=== PATIENT | male | born 1995 | race Caucasian/White ===

== ENCOUNTER 2017-04-16 17:40 | Emergency (ER) | payer OTHER ==
[2017-04-16] MEDS ORDERED: FAMOTIDINE 20 MG/2 ML VIAL IV STA (19:36)
[2017-04-16] MEDS ORDERED: MAG HYDROX/AL HYDROX/SIMETH 30 ML, HYOSCYAMINE ELIXIR 10 ML, CIMETIDINE HCL 300 MG PO STA ×3 (19:36)
[2017-04-16] MEDS ORDERED: ONDANSETRON 4 MG/2 ML VIAL IVP STA (19:36)
--- NOTE | 2017-04-16 19:44 | ED ---
Abdominal Pain HPI - General Chief Complaint: Abdominal Pain Stated Complaint: abdominal pain Time Seen by Provider: 04/16/17 19:19 Source: patient Mode of arrival: ambulatory Limitations: no limitations - History of Present Illness Initial Comments: Pt presents with "tightness" pain across upper abdomen that occurs intermittently for 3 weeks. Pain varies from mild to severe. States he feels it worse on L side, "just under the ribs". Patient has never had the pain before 3 weeks ago. Patient states pain is associated with belching usually. States pain is usually relieved by eating and then vomiting. Patient states he takes Tylenol daily for the pain, denies any NSAID use. Patient admits to daily smoking. Patient denies history of heart disease. Mother bedside denies any early family history of heart disease. Patient denies any history of lung disease. Patient denies shortness of breath, cough, fevers, chills, URI symptoms, changes in bowel movements, changes in urination. MD Complaint: abdominal pain - Related Data Home Medications Medication Instructions Recorded Confirmed Acetaminophen [Tylenol Extra 2,000 mg PO DAILY PRN 04/16/17 04/16/17 Strength] Previous Rx's Medication Instructions Recorded Ranitidine HCl [Zantac] 150 mg PO HS #20 tab 04/16/17 Allergies Allergy/AdvReac Type Severity Reaction Status Date / Time No Known Allergies Allergy Verified 04/16/17 19:26 Review of Systems ROS Statement: Those systems with pertinent positive or pertinent negative responses have been documented in the HPI. ROS Other: All systems not noted in ROS Statement are negative. Constitutional: Denies: fever, chills, weakness, weight change ENT: Denies: throat pain, congestion Respiratory: Denies: cough, dyspnea Cardiovascular: Reports: other (States pain below ribs, not in chest). Denies: chest pain, palpitations, syncope Endocrine: Denies: fatigue Gastrointestinal: Reports: abdominal pain, nausea. Denies: vomiting, diarrhea, constipation, hematemesis, melena, hematochezia Genitourinary: Denies: urgency, frequency Musculoskeletal: Denies: back pain Skin: Denies: rash Neurological: Denies: headache Past Medical History Past Medical History: No Reported History History of Any Multi-Drug Resistant Organisms: None Reported Past Surgical History: No Surgical Hx Reported Past Psychological History: No Psychological Hx Reported Smoking Status: Current every day smoker Past Alcohol Use History: None Reported Past Drug Use History: Marijuana General Exam - General Exam Comments Initial Comments: Sitting up in bed smiling. No acute distress. Well-appearing. Calm, pleasant. Limitations: no limitations General appearance: alert, in no apparent distress Head exam: Present: atraumatic, normocephalic Eye exam: Present: normal appearance, PERRL, EOMI ENT exam: Present: normal exam, mucous membranes moist Neck exam: Present: normal inspection Respiratory exam: Present: normal lung sounds bilaterally. Absent: respiratory distress, wheezes, rales, rhonchi, stridor, chest wall tenderness, accessory muscle use, decreased breath sounds, prolonged expiratory Cardiovascular Exam: Present: regular rate, normal rhythm GI/Abdominal exam: Present: soft, normal bowel sounds, other (Nontender, nondistended ). Absent: distended, tenderness, guarding, rebound, rigid, hernia Neurological exam: Present: alert, oriented X3 Psychiatric exam: Present: normal affect, normal mood Skin exam: Present: warm, dry, intact, normal color. Absent: rash, cyanosis Course Vital Signs 04/16/17 04/16/17 04/16/17 18:10 19:35 20:01 Temperature 100.4 F H 99.4 F Pulse Rate 71 61 Respiratory 18 18 Rate Blood Pressure 133/74 100/62 O2 Sat by Pulse 100 98 Oximetry Medical Decision Making - Medical Decision Making EKG done in triage, normal sinus rhythm, no ST or T-wave changes appreciated. Patient denies fevers at home, denies any infectious symptoms. Repeat temperature 99.4 Fahrenheit at time of physician evaluation, no antipyretics given. Chest x-ray no acute process. No significant lab abnormalities. Patient mother updated without results. Patient states symptoms currently resolved. Feels comfortable going home. Discussed follow primary care physician, possible referral to GI doctor. Prescription Zantac given. Patient started to avoid NSAIDs. Return to ER for new or worsening symptoms. Patient & mother understand and agree. - Lab Data Result diagrams: 04/16/17 19:51 04/16/17 19:51 Lab Results 04/16/17 04/16/17 Range/Units 19:51 19:51 WBC 10.0 (4.0-11.0) k/uL RBC 4.67 (4.30-5.90) m/uL Hgb 14.2 (13.0-17.5) gm/dL Hct 43.4 (39.0-53.0) % MCV 92.8 (80.0-100.0) fL MCH 30.3 (25.0-35.0) pg MCHC 32.7 (31.0-37.0) g/dL RDW 12.7 (11.5-15.5) % Plt Count 195 (150-450) k/uL Neutrophils % 61 % Lymphocytes % 34 % Monocytes % 3 % Eosinophils % 1 % Basophils % 0 % Neutrophils # 6.1 (1.3-7.7) k/uL Lymphocytes # 3.4 (1.0-4.8) k/uL Monocytes # 0.3 (0-1.0) k/uL Eosinophils # 0.1 (0-0.7) k/uL Basophils # 0.0 (0-0.2) k/uL Sodium 142 (137-145) mmol/L Potassium 3.8 (3.5-5.1) mmol/L Chloride 104 (98-107) mmol/L Carbon Dioxide 26 (22-30) mmol/L Anion Gap 12 mmol/L BUN 12 (9-20) mg/dL Creatinine 0.70 (0.66-1.25) mg/dL Est GFR (MDRD) Af Amer >60 (>60 ml/min/1.73 sqM) Est GFR (MDRD) Non-Af >60 (>60 ml/min/1.73 sqM) Glucose 78 (74-99) mg/dL Calcium 9.6 (8.4-10.2) mg/dL Total Bilirubin 0.1 L (0.2-1.3) mg/dL Conjugated Bilirubin 0.0 (0.0-0.3) mg/dL Unconjugated Bilirubin 0.0 (0.0-1.1) mg/dL Delta Bilirubin 0.1 (0.0-0.2) mg/dL AST 44 (17-59) U/L ALT 90 H (21-72) U/L Alkaline Phosphatase 65 (38-126) U/L Total Protein 7.1 (6.3-8.2) g/dL Albumin 4.6 (3.5-5.0) g/dL Lipase 57 (23-300) U/L Disposition Clinical Impression: Abdominal pain Disposition: HOME SELF-CARE Condition: Good Instructions: Abdominal Pain (ED) Additional Instructions: Follow-up with primary care physician. Return to ER if new or worsening symptoms. Prescriptions: Ranitidine HCl [Zantac] 150 mg PO HS #20 tab Referrals: King Garcia MD [Primary Care Provider] - 1-2 days
--- NOTE | 2017-04-16 20:14 | XR ---
EXAMINATION TYPE: XR chest 2V DATE OF EXAM: 04/16/2017 COMPARISON: NONE HISTORY: Chest pain TECHNIQUE: Frontal and lateral views of the chest are obtained. FINDINGS: Heart and mediastinum are normal. Lungs are clear. Diaphragm is normal. Bony thorax is int act. IMPRESSION: Normal chest
[2017-04-16 20:16] LABS: Basophils % (A) 0 %; Eosinophils # (A) 0.1 k/uL (0-0.7); Eosinophils % (A) 1 %; HCT 43.4 % (39.0-53.0); HGB 14.2 gm/dL (13.0-17.5); Lymphocytes # (A) 3.4 k/uL (1.0-4.8); Lymphocytes % (A) 34 %; MCH 30.3 pg (25.0-35.0); MCHC 32.7 g/dL (31.0-37.0); MCV 92.8 fL (80.0-100.0); Mean Platelet Volume 7.5; Monocytes # (A) 0.3 k/uL (0-1.0); Monocytes % (A) 3 %; Neutrophils # (A) 6.1 k/uL (1.3-7.7); Neutrophils % (A) 61 %; Platelet Count 195 k/uL (150-450); RBC 4.67 m/uL (4.30-5.90); RDW 12.7 % (11.5-15.5)
[2017-04-16 20:31] LABS: ALT 90 U/L (21-72); AST 44 U/L (17-59); Albumin 4.6 g/dL (3.5-5.0); Alkaline Phosphatase 65 U/L (38-126); Anion Gap 12 mmol/L; Bilirubin, Delta 0.1 mg/dL (0.0-0.2); Blood Urea Nitrogen 12 mg/dL (9-20); Calcium 9.6 mg/dL (8.4-10.2); Carbon Dioxide 26 mmol/L (22-30); Chloride 104 mmol/L (98-107); Glucose 78 mg/dL (74-99); Lipase 57 U/L (23-300); Potassium 3.8 mmol/L (3.5-5.1); Sodium 142 mmol/L (137-145); Total Bilirubin 0.1 mg/dL (0.2-1.3); Total Protein 7.1 g/dL (6.3-8.2)
[2017-04-16 21:01] VITALS: BP 100/64; RESP 16; TEMP 97.7
[2017-04-16 21:08] VITALS: PULSE 53
== END 2017-04-16 21:08 | disposition home or self-care (01) ==
LOC: EC 17:40
DX: R10.9 Unspecified abdominal pain (principal); R11.10 Vomiting, unspecified; F17.200 Nicotine dependence, unspecified, uncomplicated
CPT/HCPCS: 36415; 93005; 80048; 80076; 83690; 85025; 71046; 99284; 96374; 96375; J2405

== ENCOUNTER 2019-04-03 05:06 | Emergency (ER) | payer OTHER ==
[2019-04-03 05:21] VITALS: BP 102/59; PULSE 87; RESP 18; TEMP 97.6
[2019-04-03] MEDS ORDERED: LIDOCAINE 1% INJ 10MG/ML (20 ML MDV) SQ ONE (06:04)
--- NOTE | 2019-04-03 06:07 | XR ---
EXAM: XR Left Ankle Complete, 3 Views CLINICAL HISTORY: ITS.REASON XR injury/pain TECHNIQUE: Frontal, lateral and oblique views of the left ankle. COMPARISON: No relevant prior studies available. FINDINGS: Bones/joints: 4 x 6 mm radiopaque foreign object in the anterior aspect of distal third of fibula. No fracture. No dislocation. Soft tissues: Mild soft tissue swelling in anterior aspect of distal lower leg. IMPRESSION: 4 x 6 mm radiopaque foreign object in the anterior aspect of distal third of fibula.
--- NOTE | 2019-04-03 06:08 | XR ---
EXAM: XR Left Tibia and Fibula, 2 Views CLINICAL HISTORY: injury/pain TECHNIQUE: Frontal and lateral views of the left tibia and fibula. COMPARISON: No relevant prior studies available. FINDINGS: Bones/joints: No fracture. No dislocation. Soft tissues: 4 x 6 mm radiopaque foreign object in the anterior aspect of distal third of fibula. Mild soft tissue swelling in the anterolateral aspect of distal lower leg IMPRESSION: 4 x 6 mm radiopaque foreign object in the anterior aspect of distal third of fibula
--- NOTE | 2019-04-03 06:09 | XR ---
EXAM: XR Left Foot Complete, 3 or More Views CLINICAL HISTORY: left leg pain after hitting it with a sledge hammer TECHNIQUE: Frontal, lateral and oblique views of the left foot. COMPARISON: No relevant prior studies available. FINDINGS: Bones/joints: 3 mm loose body in the lateral aspect of interphalangeal joint of great toe. No acute fracture. No dislocation. Soft tissues: Unremarkable. No radiopaque foreign body. IMPRESSION: No acute fracture
--- NOTE | 2019-04-03 06:15 | ED ---
Lower Extremity Injury HPI <Juan Garza - Last Filed: 04/03/19 06:34> - General Source: patient Mode of arrival: ambulatory Limitations: physical limitation <Eryn Ramirez - Last Filed: 04/03/19 07:44> - General Chief Complaint: Extremity Injury, Lower Stated Complaint: leg pain Time Seen by Provider: 04/03/19 05:25 - History of Present Illness Initial Comments: Poli is a previously healthy 23-year-old male presents the ER today for evaluation of left prakash pain. Patient reports that yesterday he was working in his garage she has something with a sledgehammer and then felt a sharp pain in his leg and then dropped a sledgehammer onto his foot. Patient reports pain in his anterior prakash and foot though he has been ambulatory. He did note a cut on his leg. Last tetanus update was within the past 2-3 years, this is confirmed by his mother at bedside. (Eryn Ramirez) - Related Data Home Medications Medication Instructions Recorded Confirmed Acetaminophen [Tylenol Extra 2,000 mg PO DAILY PRN 04/16/17 04/16/17 Strength] Previous Rx's Medication Instructions Recorded Ranitidine HCl [Zantac] 150 mg PO HS #20 tab 04/16/17 Ibuprofen [Motrin] 600 mg PO Q8HR PRN #30 tab 04/03/19 Sulfamethox-Tmp 800-160Mg [Bactrim 1 tab PO Q12HR #14 tab 04/03/19 DS 800-160 mg] Allergies Allergy/AdvReac Type Severity Reaction Status Date / Time No Known Allergies Allergy Verified 04/03/19 05:21 Review of Systems ROS Other: All systems not noted in ROS Statement are negative. <Juan Garza - Last Filed: 04/03/19 06:34> ROS Other: All systems not noted in ROS Statement are negative. <Eryn Ramirez - Last Filed: 04/03/19 07:44> ROS Statement: Those systems with pertinent positive or pertinent negative responses have been documented in the HPI. Past Medical History Past Medical History: No Reported History History of Any Multi-Drug Resistant Organisms: None Reported Past Surgical History: No Surgical Hx Reported Past Psychological History: No Psychological Hx Reported Smoking Status: Current every day smoker Past Alcohol Use History: None Reported, Occasional Past Drug Use History: None Reported, Marijuana <Eryn Ramirez - Last Filed: 04/03/19 07:44> General Exam Limitations: physical limitation <Eryn Ramirez - Last Filed: 04/03/19 07:44> - General Exam Comments Initial Comments: Physical Exam GENERAL: Patient is well-developed and well-nourished. Patient is nontoxic and well-hydrated and is in no distress. HENT: Normocephalic, Atraumatic. EYES: PERRL, EOMI PULMONARY: Unlabored respirations. CARDIOVASCULAR: RRR Warm and well perfused extremities ABDOMEN: Non-distended SKIN: Actually 1 cm laceration to the anterior surface of the distal third of the left prakash with some minimal surrounding swelling significant tenderness : Deferred NEUROLOGIC: Alert and oriented Normal speech Normal gait MUSCULOSKELETAL: Moving all extremities with no apparent injury PSYCHIATRIC: No SI/HI (Eryn Ramirez) Course Vital Signs 04/03/19 05:18 Temperature 97.6 F Pulse Rate 87 Respiratory 18 Rate Blood Pressure 102/59 O2 Sat by Pulse 99 Oximetry Procedures - Forgein Body Removal Soft Tissue Consent Obtained: verbal consent Site: lower extremity (Left lower leg) Anesthetic Used: lidocaine 1% Amount (mLs): 8 Foreign Body Suspected: Metal Foreign Body Removed: no Foreign Body Removal Technique: Other (Blunt needle) Patient Tolerated Procedure: well, no complications <Juan Garza - Last Filed: 04/03/19 06:34> - Forgein Body Removal Soft Tissue Additional Comments: Wound was thoroughly irrigated, cleaned (Juan Garza) Medical Decision Making <Eryn Ramirez - Last Filed: 04/03/19 07:44> - Medical Decision Making The patient was seen and evaluated history obtained from patient and sent x-rays were ordered and confirmed a soft tissue foreign body. Juan AYALA attempted to extract the foreign body, however it was noted to be deep and not palpable therefore further attempts were not continued Orthopedic was consulted, images were transmitted, Dr Escobar recommends oral antibiotics, pain management, follow up in office later today or tomorrow This plan was discussed with patient and mother who agrees, patient discharged in stable condition (Eryn Ramirez) Disposition <Juan Garza - Last Filed: 04/03/19 06:34> Is patient prescribed a controlled substance at d/c from ED?: No <Eryn Ramirez Sandy - Last Filed: 04/03/19 07:44> Clinical Impression: Foreign body (FB) in soft tissue Disposition: HOME SELF-CARE Condition: Stable Instructions (If sedation given, give patient instructions): Soft Tissue Foreign Body (ED) Additional Instructions: The wound clean and dry, apply ice and keep it elevated to decrease pain and [facility] for evaluation Her to the ER for any worsening or development of any redness or purulent discharge signs of infection or any new or concerning symptoms Prescriptions: Sulfamethox-Tmp 800-160Mg [Bactrim DS 800-160 mg] 1 tab PO Q12HR #14 tab Ibuprofen [Motrin] 600 mg PO Q8HR PRN #30 tab PRN Reason: Pain Referrals: King Garcia MD [Primary Care Provider] - 1-2 days
[2019-04-03] MEDS ORDERED: KETOROLAC 30 MG/ML 1 ML VIAL IM STA (06:36)
== END 2019-04-03 07:10 | disposition home or self-care (01) ==
LOC: EC 05:06
DX: S81.822A Laceration with foreign body, left lower leg, initial encounter (principal); F17.200 Nicotine dependence, unspecified, uncomplicated; W20.8XXA Other cause of strike by thrown, projected or falling object, initial encounter; W45.8XXA Other foreign body or object entering through skin, initial encounter; Y93.89 Activity, other specified; Y92.59 Other trade areas as the place of occurrence of the external cause
CPT/HCPCS: 10120; 96372; 99283

== ENCOUNTER 2020-03-03 20:23 | Emergency (ER) | payer OTHER ==
[2020-03-03 20:43] VITALS: BP 142/103; PULSE 95; RESP 16; TEMP 98.3
--- NOTE | 2020-03-03 20:56 | ED ---
Wound/Laceration HPI - General Source: EMS Mode of arrival: EMS Limitations: physical limitation <Maye Ag - Last Filed: 03/03/20 22:18> <Fiorella Nunes - Last Filed: 03/05/20 11:59> - General Chief Complaint: Wound/Laceration Stated Complaint: Face Laceration Time Seen by Provider: 03/03/20 20:40 - History of Present Illness Initial Comments: 24-year-old male patient presents to the emergency department today for evaluation of facial injury. Patient does admit to drinking alcohol this evening and experiencing a fall hitting his face on a brick fireplace. Reports drinking 15-18 beers today. Patient is unsure if he passed out. Friends immediately called ambulance and sent him here. Mother is present and believes last tetanus vaccine was given within the last 2-3 years. He denies any other injuries. Patient denies any headache, neck pain, back pain, chest pain, shortness of breath, dizziness, weakness, abdominal pain, nausea, vomiting, or difficulties with bowel movements or urination. (Maye Ag) - Related Data Home Medications Medication Instructions Recorded Confirmed Acetaminophen [Tylenol Extra 2,000 mg PO DAILY PRN 04/16/17 04/16/17 Strength] Previous Rx's Medication Instructions Recorded Ranitidine HCl [Zantac] 150 mg PO HS #20 tab 04/16/17 Ibuprofen [Motrin] 600 mg PO Q8HR PRN #30 tab 04/03/19 Sulfamethox-Tmp 800-160Mg [Bactrim 1 tab PO Q12HR #14 tab 04/03/19 DS 800-160 mg] Allergies Allergy/AdvReac Type Severity Reaction Status Date / Time No Known Allergies Allergy Verified 04/03/19 05:21 Review of Systems ROS Other: All systems not noted in ROS Statement are negative. <Maye Ag - Last Filed: 03/03/20 22:18> ROS Other: All systems not noted in ROS Statement are negative. <Fiorella Nunes - Last Filed: 03/05/20 11:59> ROS Statement: Those systems with pertinent positive or pertinent negative responses have been documented in the HPI. Past Medical History Past Medical History: No Reported History History of Any Multi-Drug Resistant Organisms: None Reported Past Surgical History: No Surgical Hx Reported Past Psychological History: No Psychological Hx Reported Past Alcohol Use History: None Reported, Occasional Past Drug Use History: None Reported, Marijuana <Maye Ag M - Last Filed: 03/03/20 22:18> General Exam Limitations: physical limitation General appearance: alert, in no apparent distress, other (Well-developed, well- nourished adult male patient in no acute distress. Vital signs upon presentation are temperature 98.3F, pulse 95, respirations 16, blood pressure 142/103, pulse ox 98% on room air.) Head exam: Present: atraumatic, normocephalic Eye exam: Present: normal appearance, PERRL, EOMI. Absent: scleral icterus, conjunctival injection, periorbital swelling, periorbital tenderness ENT exam: Present: mucous membranes moist, other (There is large gaping laceration involving the left upper lip and cheek. Patient does have broken teeth numbers 10 and 11. No tongue injury. Mild left maxillary tenderness.). Absent: normal exam Neck exam: Present: normal inspection, full ROM, other (Nontender, no step-off, no deformity to firm midline palpation of the posterior cervical spine. Full range of motion without pain or limitation.). Absent: tenderness, meningismus, lymphadenopathy Respiratory exam: Present: normal lung sounds bilaterally. Absent: respiratory distress, wheezes, rales, rhonchi, stridor Cardiovascular Exam: Present: regular rate, normal rhythm, normal heart sounds. Absent: systolic murmur, diastolic murmur, rubs, gallop, clicks GI/Abdominal exam: Present: soft, normal bowel sounds. Absent: distended, tenderness, guarding, rebound, rigid Extremities exam: Present: normal inspection, full ROM, normal capillary refill. Absent: tenderness, pedal edema, joint swelling, calf tenderness Back exam: Present: normal inspection, other (Nontender, no step-off, no deformity to firm midline palpation of the thoracic and lumbar vertebrae. Full range of motion without pain or limitation.). Absent: vertebral tenderness Neurological exam: Present: alert, oriented X3, CN II-XII intact Psychiatric exam: Present: normal affect, normal mood Skin exam: Present: warm, dry, intact, normal color. Absent: rash <Maye Ag M - Last Filed: 03/03/20 22:18> Course Vital Signs 03/03/20 20:29 Temperature 98.3 F Pulse Rate 95 Respiratory 16 Rate Blood Pressure 142/103 O2 Sat by Pulse 98 Oximetry Medical Decision Making - Lab Data Result diagrams: 03/03/20 21:21 03/03/20 21:21 - Radiology Data Radiology results: report reviewed, image reviewed <Maye Ag - Last Filed: 03/03/20 22:18> - Lab Data Result diagrams: 03/03/20 21:21 03/03/20 21:21 <Fiorella Nunes - Last Filed: 03/05/20 11:59> - Medical Decision Making 25-year-old male patient presents to the emergency department today for evaluation after sustaining facial injury. Patient does admit to drinking alcohol, fell on his face on a brick fireplace. Physical examination did reveal large gaping laceration measuring approximately 12 cm to the left face and cheek. He did have broken teeth #[address] brain, C-spine, facial bones was obtained, results are pending. Labs pending. Patient will be transferred to [facility] for repair of this extensive laceration. Patient was given IV kefzol. His tetanus is up to date per mother. He denies having any current pain. (Maye Ag) - Lab Data Lab Results 03/03/20 03/03/20 03/03/20 Range/Units 21:13 21:21 21:21 WBC 9.0 (3.8-10.6) k/uL RBC 4.81 (4.30-5.90) m/uL Hgb 16.2 (13.0-17.5) gm/dL Hct 45.9 (39.0-53.0) % MCV 95.4 (80.0-100.0) fL MCH 33.7 (25.0-35.0) pg MCHC 35.3 (31.0-37.0) g/dL RDW 12.8 (11.5-15.5) % Plt Count 216 (150-450) k/uL MPV 7.2 Neutrophils % 62 % Lymphocytes % 26 % Monocytes % 5 % Eosinophils % 1 % Basophils % 2 % Neutrophils # 5.6 (1.3-7.7) k/uL Lymphocytes # 2.4 (1.0-4.8) k/uL Monocytes # 0.5 (0-1.0) k/uL Eosinophils # 0.1 (0-0.7) k/uL Basophils # 0.2 (0-0.2) k/uL PT 9.4 (9.0-12.0) sec INR 0.9 (<1.2) APTT 26.2 (22.0-30.0) sec Sodium (137-145) mmol/L Potassium (3.5-5.1) mmol/L Chloride (98-107) mmol/L Carbon Dioxide (22-30) mmol/L Anion Gap mmol/L BUN (9-20) mg/dL Creatinine (0.66-1.25) mg/dL Est GFR (CKD-EPI)AfAm (>60 ml/min/1.73 sqM) Est GFR (CKD-EPI)NonAf (>60 ml/min/1.73 sqM) Glucose (74-99) mg/dL Calcium (8.4-10.2) mg/dL Total Bilirubin (0.2-1.3) mg/dL AST (17-59) U/L ALT (4-49) U/L Alkaline Phosphatase (38-126) U/L Total Protein (6.3-8.2) g/dL Albumin (3.5-5.0) g/dL Urine Color Colorless Urine Appearance Clear (Clear) Urine pH 6.5 (5.0-8.0) Ur Specific Willard 1.002 (1.001-1.035) Urine Protein Negative (Negative) Urine Glucose (UA) Negative (Negative) Urine Ketones Negative (Negative) Urine Blood Negative (Negative) Urine Nitrite Negative (Negative) Urine Bilirubin Negative (Negative) Urine Urobilinogen <2.0 (<2.0) mg/dL Ur Leukocyte Esterase Negative (Negative) Serum Alcohol mg/dL 03/03/20 Range/Units 21:21 WBC (3.8-10.6) k/uL RBC (4.30-5.90) m/uL Hgb (13.0-17.5) gm/dL Hct (39.0-53.0) % MCV (80.0-100.0) fL MCH (25.0-35.0) pg MCHC (31.0-37.0) g/dL RDW (11.5-15.5) % Plt Count (150-450) k/uL MPV Neutrophils % % Lymphocytes % % Monocytes % % Eosinophils % % Basophils % % Neutrophils # (1.3-7.7) k/uL Lymphocytes # (1.0-4.8) k/uL Monocytes # (0-1.0) k/uL Eosinophils # (0-0.7) k/uL Basophils # (0-0.2) k/uL PT (9.0-12.0) sec INR (<1.2) APTT (22.0-30.0) sec Sodium 142 (137-145) mmol/L Potassium 4.2 (3.5-5.1) mmol/L Chloride 108 H (98-107) mmol/L Carbon Dioxide 21 L (22-30) mmol/L Anion Gap 13 mmol/L BUN 8 L (9-20) mg/dL Creatinine 0.63 L (0.66-1.25) mg/dL Est GFR (CKD-EPI)AfAm >90 (>60 ml/min/1.73 sqM) Est GFR (CKD-EPI)NonAf >90 (>60 ml/min/1.73 sqM) Glucose 105 H (74-99) mg/dL Calcium 10.0 (8.4-10.2) mg/dL Total Bilirubin 0.4 (0.2-1.3) mg/dL AST 69 H (17-59) U/L ALT 68 H (4-49) U/L Alkaline Phosphatase 78 (38-126) U/L Total Protein 8.3 H (6.3-8.2) g/dL Albumin 5.0 (3.5-5.0) g/dL Urine Color Urine Appearance (Clear) Urine pH (5.0-8.0) Ur Specific Willard (1.001-1.035) Urine Protein (Negative) Urine Glucose (UA) (Negative) Urine Ketones (Negative) Urine Blood (Negative) Urine Nitrite (Negative) Urine Bilirubin (Negative) Urine Urobilinogen (<2.0) mg/dL Ur Leukocyte Esterase (Negative) Serum Alcohol 325 H* mg/dL - Radiology Data CT brain and C-spine without contrast was obtained. Report was reviewed in its entirety. Impression by Dr. Correa shows negative computed tomography scan of the brain, negative computed tomography scan of the cervical spine. CT facial bones without contrast was obtained. Report reviewed in its entirety. Impression by Dr. Correa shows laceration defect anterior to the left hemimandible. Sinusitis. No fracture seen. (Maye Ag) Disposition Decision to Admit Reason: Admit from EC Decision Date: 03/03/20 Decision Time: 21:14 <Maye Ag - Last Filed: 03/03/20 22:18> <Fiorella Nunes - Last Filed: 03/05/20 11:59> Clinical Impression: Facial laceration, Head injury, Alcohol intoxication Disposition: ADMITTED IP TO THIS [facility] Condition: Serious Referrals: Mainor Garcia MD [Primary Care Provider] - 1-2 days
[2020-03-03 21:24] LABS: Basophils # (A) 0.2 k/uL (0-0.2); Basophils % (A) 2 %; Eosinophils # (A) 0.1 k/uL (0-0.7); Eosinophils % (A) 1 %; HCT 45.9 % (39.0-53.0); HGB 16.2 gm/dL (13.0-17.5); Lymphocytes # (A) 2.4 k/uL (1.0-4.8); Lymphocytes % (A) 26 %; MCH 33.7 pg (25.0-35.0); MCHC 35.3 g/dL (31.0-37.0); MCV 95.4 fL (80.0-100.0); Mean Platelet Volume 7.2; Monocytes # (A) 0.5 k/uL (0-1.0); Monocytes % (A) 5 %; Neutrophils # (A) 5.6 k/uL (1.3-7.7); Neutrophils % (A) 62 %; Platelet Count 216 k/uL (150-450); RBC 4.81 m/uL (4.30-5.90); RDW 12.8 % (11.5-15.5)
[2020-03-03 21:33] LABS: ALT 68 U/L (4-49); AST 69 U/L (17-59); African American GFR (CKD) >90 (>60 ml/min/1.73 sqM); Alkaline Phosphatase 78 U/L (38-126); Anion Gap 13 mmol/L; Blood Urea Nitrogen 8 mg/dL (9-20); Carbon Dioxide 21 mmol/L (22-30); Chloride 108 mmol/L (98-107); Glucose 105 mg/dL (74-99); Non-African American GFR(CKD) >90 (>60 ml/min/1.73 sqM); Potassium 4.2 mmol/L (3.5-5.1); Sodium 142 mmol/L (137-145); Total Bilirubin 0.4 mg/dL (0.2-1.3); Total Protein 8.3 g/dL (6.3-8.2)
--- NOTE | 2020-03-03 21:38 | CT ---
EXAMINATION TYPE: CT brain cspine wo con DATE OF EXAM: 03/03/2020 COMPARISON: None HISTORY: fell hitting face on brick fireplace, large laceration to left lip CT DLP: combined DLP 1165.8 mGycm Automated exposure control for dose reduction was used. Images were obtained of the brain and cervical spine with no contrast. Ventricles and sulci appear normal. There is no mass effect nor midline shift. There is no sign of in tracranial hemorrhage. The calvarium is intact. Cervical vertebra have fairly normal spacing and alignment. Posterior elements are intact. Facet join ts are intact. Skull base is intact. I see no bony destructive process. IMPRESSION: Negative CT scan of the brain. Negative CT scan of the cervical spine.
--- NOTE | 2020-03-03 21:40 | CT ---
EXAMINATION TYPE: CT facial bones wo con DATE OF EXAM: 03/03/2020 COMPARISON: None HISTORY: fell hitting face on brick fireplace, large laceration to left lip CT DLP: combined DLP 1165.8 mGycm Automated exposure control for dose reduction was used. Images were obtained from the top of the orbits to the bottom of the mandible with no contrast. There is mucosal thickening in the maxillary sinuses more on the right side than the left. The orbita l margins are intact. There is no evidence of a blowout fracture. The mandibular ring is intact. Temporomandibular joints are intact. There is large laceration of the skin anterior to the left hemimandible. The zygomatic arches are intact. Nasal bone is intact. There is no evidence of a foreign body. There is soft tissue air bubbles at the laceration site. There is f airly normal aeration of the sphenoid sinus. There is mild mucosal thickening in the ethmoid and fron nacho sinuses. IMPRESSION: Laceration defect anterior to the left hemimandible. Sinusitis. No fracture seen.
[2020-03-03 21:47] LABS: Appearance,Urine Clear (Clear); Bilirubin,Urine Negative (Negative); Blood,Urine Negative (Negative); Color,Urine Colorless; Glucose,Urine (UA) Negative (Negative); Ketones,Urine Negative (Negative); Leukocyte Esterase,Urine Negative (Negative); Nitrite,Urine Negative (Negative); PH, Urine 6.5 (5.0-8.0); Protein,Urine Negative (Negative); Specific Gravity,Urine 1.002 (1.001-1.035); Urobilinogen,Urine <2.0 mg/dL (<2.0)
[2020-03-03 21:50] LABS: Alcohol 325 mg/dL; INR 0.9 (<1.2); Partial Thromboplastin Time 26.2 sec (22.0-30.0); Prothrombin Time 9.4 sec (9.0-12.0)
== END 2020-03-03 21:39 | disposition other institution (70) ==
LOC: EC 20:23
DX: S01.81XA Laceration without foreign body of other part of head, initial encounter (principal); S01.511A Laceration without foreign body of lip, initial encounter; W18.09XA Striking against other object with subsequent fall, initial encounter; S02.5XXA Fracture of tooth (traumatic), initial encounter for closed fracture
CPT/HCPCS: 36415; 80053; 85025; 85610; 85730; 81003; 80320; 72125; 70486; 70450; 99284; 96365; J0690